=== PATIENT | female | born 1980 | race Caucasian/White ===

== ENCOUNTER 2018-10-30 08:32 | Emergency (ER) | payer MEDICAID ==
--- NOTE | 2018-10-30 08:46 | EDM.PDOC ---
ED HPI GENERAL MEDICAL PROBLEM - General Chief Complaint: Fever Stated Complaint: HIGH FEVER, COUGHING Time Seen by Provider: 10/30/18 08:44 - History of Present Illness INITIAL COMMENTS - FREE TEXT/NARRATIVE: Was seen in the clinic last Wed for a dry cough and fever. The exam was negative and she was dx with bronchitis and placed on a Z-pack and asked to return to the clinic at 10 am today to see another provider. Decided to come here instead. Fevers on and off since she was seen. Sx's pretty much unchanged. Onset: Gradual Onset Date: 10/25/18 Duration: Day(s):, Waxing/Waning Location: Reports: Chest Severity: Mild Improves with: Reports: None Worsens with: Reports: None Context: Reports: Other (See HPI) Associated Symptoms: Reports: Cough, Fever/Chills. 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: Musculoskeletal History: Reports: Other (See Below) Other Musculoskeletal History: carpal tunnel bilaterally Neurological History: Reports: Migraines Endocrine/Metabolic History: Reports: Obesity/BMI 30+ - Infectious Disease History Infectious Disease History: Reports: Chicken Pox - Past Surgical History GI Surgical History: Reports: Appendectomy, Hernia Repair/Other Female Surgical History: Reports: Section, Tubal Ligation Social & Family History - Family History Family Medical History: Noncontributory - Caffeine Use Caffeine Use: Reports: Coffee ED ROS GENERAL - Review of Systems Review Of Systems: See Below Constitutional: Reports: Fever (intermittent) HEENT: Reports: No Symptoms Respiratory: Reports: Cough. Denies: Shortness of Breath, Wheezing, Sputum, Hemoptysis Cardiovascular: Reports: No Symptoms Endocrine: Reports: No Symptoms GI/Abdominal: Reports: No Symptoms : Reports: No Symptoms Musculoskeletal: Reports: No Symptoms Skin: Reports: No Symptoms Neurological: Reports: No Symptoms ED EXAM, GENERAL - Physical Exam Exam: See Below Exam Limited By: No Limitations General Appearance: Alert, WD/WN, No Apparent Distress, Obese Eye Exam: Bilateral Eye: Normal Inspection Ears: Normal External Exam, Normal Canal, Hearing Grossly Normal, Normal TMs Ear Exam: Bilateral Ear: Auricle Normal, Canal Normal, TM normal Nose: Normal Inspection, Normal Mucosa, No Blood Throat/Mouth: Normal Inspection, Normal Lips, Normal Oropharynx, Normal Voice, No Airway Compromise Head: Atraumatic, Normocephalic Neck: Normal Inspection Respiratory/Chest: No Respiratory Distress, Lungs Clear, Normal Breath Sounds, No Accessory Muscle Use Cardiovascular: Regular Rate, Rhythm, No Edema Back Exam: Normal Inspection Extremities: Normal Inspection, Normal Range of Motion, Non-Tender, No Pedal Edema Neurological: Alert, Oriented, CN II-XII Intact, Normal Cognition, No Motor/ Sensory Deficits Psychiatric: Normal Affect, Normal Mood Skin Exam: Warm, Dry, Intact, Normal Color, No Rash Lymphatic: No Adenopathy Course - Vital Signs Last Recorded V/S: Last Vital Signs Temp 37.9 C 10/30/18 08:46 Pulse 107 H 10/30/18 08:46 Resp 16 10/30/18 08:46 BP 127/79 10/30/18 08:46 Pulse Ox 94 L 10/30/18 08:46 - Orders/Labs/Meds Labs: Laboratory Tests 10/30/18 Range/Units 09:12 WBC 7.3 (4.5-11.0) K/uL RBC 4.72 (3.30-5.50) M/uL Hgb 14.2 D (12.0-15.0) g/dL Hct 43.0 (36.0-48.0) % MCV 91 (80-98) fL MCH 30 (27-31) pg MCHC 33 (32-36) % Plt Count 167 (150-400) K/uL Departure - Departure Time of Disposition: :31 Disposition: Home, Self-Care 01 Condition: Good Clinical Impression: Viral respiratory illness - Discharge Information *PRESCRIPTION DRUG MONITORING PROGRAM REVIEWED*: No *COPY OF PRESCRIPTION DRUG MONITORING REPORT IN PATIENT BRISA: No Referrals: Aleena Malik CNM [Primary Care Provider] - Forms: ED Department Discharge Additional Instructions: Ibuprofen and/or acetaminophen for pain or fever control. Drink ample fluids. Hand washing to reduce the spread. Recheck in the clinic as needed.
[2018-10-30 08:49] VITALS: BP 127/79
== END 2018-10-30 09:51 | disposition home or self-care (01) ==
LOC: JP.ED 08:32
DX: B34.9 Viral infection, unspecified (principal); K21.9 Gastro-esophageal reflux disease without esophagitis; Z79.899 Other long term (current) drug therapy; Z88.1 Allergy status to other antibiotic agents
CPT/HCPCS: 36415; 85027; 99283